=== PATIENT | male | born 1960 | race Caucasian/White ===

== ENCOUNTER 2018-11-15 20:55 | Inpatient (IN) | payer OTHER ==
[2018-11-15] MEDS ORDERED: NITROGLYCERIN (SL) 0.4 MG TAB SL (21:30)
[2018-11-15 21:46] LABS: ADD MAN DIFF? NO
[2018-11-15 21:52] LABS: ABNORMAL IP MESSAGE 1; BASOPHIL # 0.1 10^3/ul (0.0-0.1); BASOPHILS % 0.4 % (0.0-2.0); EOSINOPHILS # 0.4 10^3/ul (0.0-0.5); EOSINOPHILS % 3.8 % (0.0-7.0); LYMPHOCYTES # 1.4 10^3/ul (0.8-2.9); MEAN CORPUSCULAR HEMOGLOBIN 29.1 pg (29.0-33.0); MEAN CORPUSCULAR HGB CONC 31.3 g/dl (32.0-37.0); MEAN PLATELET VOLUME 13.2 fl (7.4-10.4); MONOCYTE # 1.1 10^3/ul (0.3-0.9); MONOCYTES % 9.6 % (0.0-11.0); NEUTROPHIL # 8.4 10^3/ul (1.6-7.5); NEUTROPHILS % 73.9 % (39.0-77.0); PLATELET COUNT 208 10^3/UL (140-415); POSITIVE DIFF @See below; RED BLOOD COUNT 3.44 10^6/ul (4.70-6.10); RED CELL DISTRIBUTION WIDTH 14.3 % (11.5-14.5)
[2018-11-15 21:52] LABS: WHITE BLOOD COUNT 11.3 10^3/ul (4.8-10.8)
[2018-11-15 22:09] LABS: ANION GAP 10 (5-13); BLOOD UREA NITROGEN 33 mg/dl (7-20); CALCIUM 8.5 mg/dl (8.4-10.2); CARBON DIOXIDE 18 mmol/L (21-31); CHLORIDE 115 mmol/L (97-110); CREATININE 3.16 mg/dl (0.61-1.24); Estimated GFR 20 mL/min (>60); GLUCOSE 132 mg/dl (70-220); POTASSIUM 4.1 mmol/L (3.5-5.1); SODIUM 143 mmol/L (135-144)
[2018-11-15] MEDS: ASPIRIN 81 MG TAB PO (22:32)
[2018-11-15] MEDS: NITROGLYCERIN 2% 1 GM OINT PKT TD (22:34)
[2018-11-15] MEDS ORDERED: ONDANSETRON 4 MG INJ IV (23:00)
[2018-11-15] MEDS ORDERED: ACETAMINOPHEN 325 MG TAB PO (23:00)
[2018-11-16 04:31] LABS: CREATINE KINASE 221 IU/L (23-200)
[2018-11-16 04:40] LABS: CK-MB 2.26 ng/ml (0.0-2.4); TROPONIN-I 0.021 ng/ml (0.000-0.120)
[2018-11-16] MEDS ORDERED: ACETAMINOPHEN 325 MG TAB PO (05:30)
[2018-11-16] MEDS ORDERED: NITROGLYCERIN (SL) 0.4 MG TAB SL (05:30)
[2018-11-16] MEDS ORDERED: hydrALAzine 20 MG INJ IV (05:30)
[2018-11-16] MEDS ORDERED: ONDANSETRON 4 MG INJ IV (05:30)
[2018-11-16] MEDS ORDERED: ALBUTEROL/IPRATROPIUM (NEB) 3 ML AMP HHN (05:30)
[2018-11-16] MEDS ORDERED: NACL 0.9% 3 ML SYG IV (05:30)
[2018-11-16] MEDS ORDERED: HYDROCODONE/APAP (5/325) TAB PO (05:30)
[2018-11-16] MEDS: PANTOPRAZOLE (EC) 40 MG TAB PO (07:14)
[2018-11-16 07:57] LABS: ADD MAN DIFF? NO
[2018-11-16 08:00] LABS: WHITE BLOOD COUNT 16.3 10^3/ul (4.8-10.8)
[2018-11-16 08:00] LABS: BASOPHIL # 0.1 10^3/ul (0.0-0.1); BASOPHILS % 0.3 % (0.0-2.0); EOSINOPHILS # 0.3 10^3/ul (0.0-0.5); EOSINOPHILS % 1.9 % (0.0-7.0); HEMATOCRIT 30.5 % (42.0-52.0); HEMOGLOBIN 9.8 g/dl (14.0-18.0); LYMPHOCYTES # 0.9 10^3/ul (0.8-2.9); LYMPHOCYTES % 5.6 % (15.0-51.0); MEAN CORPUSCULAR HEMOGLOBIN 29.4 pg (29.0-33.0); MEAN CORPUSCULAR HGB CONC 32.1 g/dl (32.0-37.0); MEAN CORPUSCULAR VOLUME 91.6 fl (82.0-101.0); MEAN PLATELET VOLUME 12.8 fl (7.4-10.4); MONOCYTE # 1.1 10^3/ul (0.3-0.9); MONOCYTES % 6.9 % (0.0-11.0); NEUTROPHIL # 13.8 10^3/ul (1.6-7.5); NEUTROPHILS % 84.9 % (39.0-77.0); PLATELET COUNT 202 10^3/UL (140-415); RED BLOOD COUNT 3.33 10^6/ul (4.70-6.10); RED CELL DISTRIBUTION WIDTH 14.1 % (11.5-14.5)
[2018-11-16 08:19] LABS: ALANINE AMINOTRANSFERASE 16 IU/L (13-69); ALBUMIN 3.1 g/dl (3.3-4.9); ALBUMIN/GLOBULIN RATIO 1.29; ALKALINE PHOSPHATASE 83 IU/L (42-121); ANION GAP 9 (5-13); ASPARTATE AMINO TRANSFERASE 17 IU/L (15-46); BILIRUBIN,INDIRECT 0.5 mg/dl (0-1.1); BILIRUBIN,TOTAL 0.5 mg/dl (0.2-1.3); BLOOD UREA NITROGEN 33 mg/dl (7-20); CALCIUM 8.4 mg/dl (8.4-10.2); CARBON DIOXIDE 19 mmol/L (21-31); CHLORIDE 116 mmol/L (97-110); CHOLESTEROL 214 mg/dl (100-200); CREATININE 3.19 mg/dl (0.61-1.24); Estimated GFR 20 mL/min (>60); GLUCOSE 110 mg/dl (70-220); HDL CHOLESTEROL 42 mg/dl (28-71); LDL CHOLESTEROL,CALCULATED 150 mg/dl; MAGNESIUM 1.7 mg/dl (1.7-2.5); POTASSIUM 4.1 mmol/L (3.5-5.1); SODIUM 144 mmol/L (135-144); TOTAL PROTEIN 5.5 g/dl (6.1-8.1); TRIGLYCERIDES 112 mg/dl (0-149)
[2018-11-16 08:41] LABS: HEMOGLOBIN A1C 5.6 % (0-5.9)
[2018-11-16] MEDS ORDERED: NON-FORMULARY/PATIENT OWN MED (Omeprazole* 20 MG) PO (09:00)
[2018-11-16] MEDS: LOSARTAN 50 MG TAB PO (10:21)
[2018-11-16] MEDS: HEPARIN 5,000 UNIT/1 ML VIAL SC ×2 (10:25→22:22)
[2018-11-16 11:03] LABS: ADD UMIC YES; UR ASCORBIC ACID NEGATIVE (NEGATIVE); UR BILIRUBIN (Dip) NEGATIVE (NEGATIVE); UR BLOOD (Dip) 1+ mg/dL (NEGATIVE); UR CLARITY CLEAR (CLEAR); UR COLOR YELLOW (YELLOW); UR GLUCOSE (Dip) 2+ mg/dL (NEGATIVE); UR KETONES (Dip) NEGATIVE (NEGATIVE); UR LEUKOCYTE ESTERASE (Dip) NEGATIVE Leu/ul (NEGATIVE); UR NITRITE (Dip) NEGATIVE (NEGATIVE); UR RBC 1 /HPF (0-5); UR SPECIFIC GRAVITY (Dip) 1.012 (1.003-1.030); UR TOTAL PROTEIN (Dip) 3+ mg/dl (NEGATIVE); UR UROBILINOGEN (Dip) NEGATIVE (NEGATIVE); UR WBC 1 /HPF (0-5)
[2018-11-16 11:12] LABS: CREATININE,URINE RANDOM 66.51 mg/dl (20-370)
[2018-11-16 11:12] LABS: SODIUM,URINE RANDOM 97 mmol/L (30-90)
[2018-11-16] MEDS: SOD CHLORIDE 0.9% 1,000 ML IV (11:36)
[2018-11-16 11:42] LABS: SODIUM,URINE RANDOM 97 mmol/L (30-90)
[2018-11-16] MEDS: MYCOPHENOLATE 250 MG CAP PO (11:44)
[2018-11-16 11:49] LABS: CREATINE KINASE 189 IU/L (23-200)
[2018-11-16] MEDS: GUAIFENESIN 20 MG/ML 5ML CUP PO (11:57)
[2018-11-16 12:02] LABS: CK INDEX 0.8; CK-MB 1.51 ng/ml (0.0-2.4); TROPONIN-I < 0.012 ng/ml (0.000-0.120)
[2018-11-16] MEDS: NIFEdipine (XL) 30 MG TAB PO (14:22)
[2018-11-16] MEDS: AZITHROMYCIN 500MG/NS (PMX) 250 ML IVPB (15:03)
[2018-11-16 15:25] LABS: ADD MAN DIFF? NO
[2018-11-16 15:26] LABS: WHITE BLOOD COUNT 12.5 10^3/ul (4.8-10.8)
[2018-11-16 15:26] LABS: ABNORMAL IP MESSAGE 1; BASOPHIL # 0.1 10^3/ul (0.0-0.1); BASOPHILS % 0.4 % (0.0-2.0); EOSINOPHILS # 0.4 10^3/ul (0.0-0.5); EOSINOPHILS % 3.5 % (0.0-7.0); HEMATOCRIT 27.9 % (42.0-52.0); LYMPHOCYTES # 1.1 10^3/ul (0.8-2.9); LYMPHOCYTES % 8.7 % (15.0-51.0); MEAN CORPUSCULAR HEMOGLOBIN 29.3 pg (29.0-33.0); MEAN CORPUSCULAR HGB CONC 32.3 g/dl (32.0-37.0); MEAN CORPUSCULAR VOLUME 90.9 fl (82.0-101.0); MEAN PLATELET VOLUME 13.6 fl (7.4-10.4); MONOCYTE # 1.2 10^3/ul (0.3-0.9); MONOCYTES % 9.9 % (0.0-11.0); NEUTROPHIL # 9.6 10^3/ul (1.6-7.5); NEUTROPHILS % 77.1 % (39.0-77.0); PLATELET COUNT 173 10^3/UL (140-415); POSITIVE DIFF @See below; RED BLOOD COUNT 3.07 10^6/ul (4.70-6.10); RED CELL DISTRIBUTION WIDTH 14.4 % (11.5-14.5)
[2018-11-16] MEDS: ARFORMOTEROL TARTRATE 15MCG/2 ML AMP NEB (15:35)
[2018-11-16 15:48] LABS: ANION GAP 10 (5-13); BLOOD UREA NITROGEN 33 mg/dl (7-20); CALCIUM 7.9 mg/dl (8.4-10.2); CARBON DIOXIDE 17 mmol/L (21-31); CHLORIDE 114 mmol/L (97-110); CREATININE 3.11 mg/dl (0.61-1.24); Estimated GFR 21 mL/min (>60); GLUCOSE 120 mg/dl (70-220); SODIUM 141 mmol/L (135-144)
[2018-11-16] MEDS: GUAIFENESIN/DM 5ML CUP PO (18:59)
[2018-11-16] MEDS: ASPIRIN 81 MG TAB PO (18:59)
[2018-11-16] MEDS: ATORVASTATIN 40 MG TAB PO (21:00)
[2018-11-17] MEDS: MYCOPHENOLATE 250 MG CAP PO ×2 (02:01→08:13)
[2018-11-17] MEDS: GUAIFENESIN/DM 5ML CUP PO (02:02)
[2018-11-17 05:42] LABS: WHITE BLOOD COUNT 9.2 10^3/ul (4.8-10.8)
[2018-11-17 05:42] LABS: ABNORMAL IP MESSAGE 1; HEMATOCRIT 28.6 % (42.0-52.0); HEMOGLOBIN 9.1 g/dl (14.0-18.0); MEAN CORPUSCULAR HEMOGLOBIN 29.4 pg (29.0-33.0); MEAN CORPUSCULAR HGB CONC 31.8 g/dl (32.0-37.0); MEAN CORPUSCULAR VOLUME 92.3 fl (82.0-101.0); MEAN PLATELET VOLUME 13.4 fl (7.4-10.4); PLATELET COUNT 188 10^3/UL (140-415); POSITIVE DIFF @See below; RED CELL DISTRIBUTION WIDTH 14.3 % (11.5-14.5)
[2018-11-17 05:47] LABS: ADD MAN DIFF? YES
[2018-11-17 06:01] LABS: ANION GAP 10 (5-13); BLOOD UREA NITROGEN 37 mg/dl (7-20); CALCIUM 7.9 mg/dl (8.4-10.2); CARBON DIOXIDE 19 mmol/L (21-31); CHLORIDE 113 mmol/L (97-110); CREATININE 3.13 mg/dl (0.61-1.24); Estimated GFR 21 mL/min (>60); GLUCOSE 112 mg/dl (70-220); MAGNESIUM 1.8 mg/dl (1.7-2.5); PHOSPHORUS 3.8 mg/dl (2.5-4.9); POTASSIUM 3.8 mmol/L (3.5-5.1); SODIUM 142 mmol/L (135-144)
[2018-11-17 06:04] LABS: INR 1.03; PROTIME 13.6 Sec (11.9-14.9); PT RATIO 1.1
[2018-11-17] MEDS: PANTOPRAZOLE (EC) 40 MG TAB PO (06:17)
[2018-11-17] MEDS: ASPIRIN 81 MG TAB PO (08:13)
[2018-11-17] MEDS: NIFEdipine (XL) 30 MG TAB PO (08:14)
[2018-11-17] MEDS: HEPARIN 5,000 UNIT/1 ML VIAL SC (08:19)
[2018-11-17 15:51] LABS: CREATININE, RANDOM URINE 71 mg/dL (20-320); MICROALBUMIN 330.6 mg/dL; MICROALBUMIN/CREATININE RATIO 4656 (<30)
== END 2018-11-17 11:17 | disposition home or self-care (01) | DRG 313 ==
LOC: E/R 20:55 → ICU 22:46 → 6WM 11-16 16:07
DX: R07.9 Chest pain, unspecified (principal); N17.9 Acute kidney failure, unspecified; R65.10 Systemic inflammatory response syndrome (SIRS) of non-infectious origin without acute organ dysfunction; N18.4 Chronic kidney disease, stage 4 (severe); I10 Essential (primary) hypertension; I16.0 Hypertensive urgency; Z86.711 Personal history of pulmonary embolism; Z79.01 Long term (current) use of anticoagulants; Z76.82 Awaiting organ transplant status; I12.9 Hypertensive chronic kidney disease with stage 1 through stage 4 chronic kidney disease, or unspecified chronic kidney disease; E66.01 Morbid (severe) obesity due to excess calories; Z68.39 Body mass index [BMI] 39.0-39.9, adult; D63.1 Anemia in chronic kidney disease; E78.5 Hyperlipidemia, unspecified; J06.9 Acute upper respiratory infection, unspecified
CPT/HCPCS: 36415; 71045; 76775; 80048; 80053; 80061; 81001; 81003; 82043; 82436; 82550; 82553; 83036; 83735; 84100; 84133; 84155; 84300; 84443; 84484; 85025; 85610; 87081; 93005; 93306; 94640; 99285-25

== ENCOUNTER 2019-03-26 22:46 | Emergency (ER) | payer OTHER ==
[2019-03-27] MEDS: ACETAMINOPHEN 325 MG TAB PO (03:25)
== END 2019-03-27 03:44 | disposition home or self-care (01) ==
LOC: FTE 22:46
DX: M54.5 Low back pain (principal); I11.0 Hypertensive heart disease with heart failure; I50.9 Heart failure, unspecified
CPT/HCPCS: 99282; Z7502

== ENCOUNTER 2019-07-23 14:04 | Emergency (ER) | payer OTHER | END 2019-07-23 15:46 | disposition home or self-care (01) | LOC: E/R 14:04 | DX: M79.604 Pain in right leg (principal); M54.32 Sciatica, left side; I11.0 Hypertensive heart disease with heart failure; I50.9 Heart failure, unspecified; Z79.02 Long term (current) use of antithrombotics/antiplatelets | CPT/HCPCS: 93971; 99284-25 ==